=== PATIENT | male | born 1990 | race Caucasian/White ===

== ENCOUNTER 2023-06-10 19:08 | Emergency (ER) | payer OTHER, SELFPAY ==
[2023-06-10 19:09] VITALS: BP 122/69; PULSE 75; RESP 16; TEMP 35.7; O2SAT 99; BMI 26.1
[2023-06-10] MEDS: Ondansetron ODT 4 MG Tablet PO (19:29)
[2023-06-10] MEDS: Famotidine 20 MG Tablet PO (19:29)
--- NOTE | 2023-06-10 19:34 | EDS_ITS ---
HPI HPI - GI History of Present Illness Chief Complaint: Nausea/Vomiting Narrative Narrative: 33-year-old male presenting with nausea. Patient states that about an hour ago while he was driving home he started to have some epigastric pain and nausea. He states that the nausea has now improved and so is the epigastric pain. Patient states he was out of town at a friend's house. He states that this morning he ate breakfast and then after leaving his friend's kids birthday constitution party he was on his way home and started experiencing symptoms. He has not a fever but now feels like he is having bodyaches. He denies any diarrhea or constipation. He has not vomited. He states he had a couple of beers last night but had felt bad all day. He denies history of pancreatitis. Patient states he has no medical problems. No surgical history. No known drug aller gies. PFSH PFSH Medical History no medical history Home Medications ondansetron 4 mg disintegrating tablet 4 mg PO Q8H PRN PRN Nausea #14 tabs 06/10/23 [Rx Last Taken Unknown] Allergy/AdvReac Type Severity Reaction Status Date / Time No Known Allergies Allergy Verified 06/10/23 19:09 Surgical History no surgical history Social History Smoking Status: Current every day smoker tobacco type: e-cigarettes ROS ROS ED Constitutional Constitutional ED: Denies chills, fever(s) or sweats Eyes Eyes: Denies blurry vision or change in vision ENT ENT ED: Denies ear pain or sore throat Cardiovascular Cardiovascular: Denies chest pain, palpitations or racing heartbeat Respiratory/Chest Respiratory/Chest: Denies cough, dyspnea or sputum Gastrointestinal Gastrointestinal: Reports abdominal pain; Denies constipation, diarrhea or vomiting Genitourinary Genitourinary ED: Denies dysuria, hematuria or urinary frequency Musculoskeletal Musculoskeletal: Denies arthralgias, myalgias or neck pain Integumentary Denies abscess, Abrasions or rash Neurologic Neurologic: Denies headache(s), paresthesias or weakness Psychiatric Psychiatric: Denies anxiety, depression, suicidal ideation or suicidal thoughts Endocrine Endocrinology: Denies polydipsia or polyuria EXAM Physical Exam Const Vital Signs: 06/10/23 19:09 Temperature 96.3 F L Temperature Source Temporal Pulse Rate 75 Respiratory Rate 16 Blood Pressure 122/69 H Blood Pressure Mean 86 Pulse Ox 99 Positive well nourished General Appearance ED: NAD HEENT Reports moist mucous membranes normocephalic Eyes PERRL and EOMs intact bilaterally Resp normal respiratory effort Auscultation: Negative for rales, rhonchi or wheezes Cardio regular rate and regular rhythm GI non-tender Palpation: soft Neuro CN's II-XII intact bilaterally Psych mental status grossly normal Skin no wounds MDM MDM MDM Narrative Medical decision making narrative: Patient presenting with nausea/abdominal pain differential includes viral syndrome, gastritis, GERD, carsickness. Patient treated with Zofran and Pepcid. Will reevaluate. Did offer viral testing however patient declines. On reevaluation at 8:15 PM the patient says he feels much better. He is drinking lisa talia. I will fill his prescription with meds to beds for Zofran for home. Return precautions discussed. Impression: 1. Nausea 2. Abdominal pain resolved Discharge Plan Triage Chief Complaint: Nausea/Vomiting ED Provider: Hal Montiel Dx/Rx/DC Orders Instructions: ED Vomiting (Adult) Prescriptions: New ondansetron 4 mg tablet,disintegrating 4 mg PO Q8H PRN PRN (Reason: Nausea) Qty: 14 0RF Primary Care Provider: Care Physician,No Primary Referrals: [facility] [Outside] - 3-5 Days Care Physician,No Primary [Primary Care Provider] - Disposition Disposition: Home, Self Care
[2023-06-10 20:32] VITALS: BP 125/78; PULSE 77; RESP 16; TEMP 36.7; O2SAT 99
== END 2023-06-10 21:03 | disposition home or self-care (01) ==
PROVIDERS: Emergency Provider Student in an Organized Health Care Education/Training Program; Visit Provider Student in an Organized Health Care Education/Training Program
DX: R11.0 Nausea (principal); R10.13 Epigastric pain; F17.290 Nicotine dependence, other tobacco product, uncomplicated
CPT/HCPCS: 99283